=== PATIENT | female | born 1945 | race Caucasian/White ===

== ENCOUNTER → 2019-04-08 | Outpatient (CLI) | payer MEDICARE, OTHER ==
[~2019-04-08] MED LIST: CALCIUM + D3 E1 EACH PO; Omeprazole20 M1 PO; Synthroid25 MCG PO
== END | disposition home or self-care (01) ==
LOC: LAB SHORT 10:54 → LAB EV 10:54
DX: N39.0 Urinary tract infection, site not specified (principal)
CPT/HCPCS: 87077; 87086; 87186

== ENCOUNTER 2020-03-01 15:14 | Inpatient (IN) | payer MEDICARE, OTHER ==
[~2020-03-01] VITALS: Ht 165.1 cm; Wt 85.1 kg
[2020-03-01 15:56] LABS: BASOPHILS ABSOLUTE AUTO 0.03 K/mm3 (0.00-0.23); BASOPHILS PERCENT AUTO 1 % (0-2); EOSINOPHILS ABSOLUTE AUTO 0.03 K/mm3 (0.00-0.68); EOSINOPHILS PERCENT AUTO 1 % (0-6); Hematocrit 45.2 % (33.0-51.0); Hemoglobin 14.9 g/dL (11.5-16.0); IMMATURE GRAN ABSOLUTE AUTO 0.02 K/mm3 (0.00-0.10); IMMATURE GRAN PERCENT AUTO 0 % (0-1); LYMPHOCYTES ABSOLUTE AUTO 1.87 K/mm3 (0.84-5.20); LYMPHOCYTES PERCENT AUTO 29 % (21-46); MONOCYTES ABSOLUTE AUTO 0.34 K/mm3 (0.16-1.47); MONOCYTES PERCENT AUTO 5 % (4-13); Mean Corpuscular HGB 29.6 pg (26.0-34.0); Mean Corpuscular Volume 90 fL (80-100); Mean Platelet Volume 12.1 fL (9.1-12.4); NEUTROPHILS ABSOLUTE AUTO 4.22 K/mm3 (1.96-9.15); NEUTROPHILS PERCENT AUTO 65 % (41-73); Platelet Count 185 K/mm3 (150-400); RDW Coefficient Variation 12.6 % (11.7-14.2); RDW Standard Deviation 41.4 fL (35.1-46.3); Red Blood Cell Count 5.04 M/mm3 (3.80-5.20); White Blood Cell Count 6.51 K/mm3 (4.00-11.30)
[2020-03-01 16:19] LABS: Alanine Aminotransfer (ALT/SGP 21 U/L (12-78); Albumin/Globulin Ratio 1.3 (0.8-1.8); Alk Phos 54 U/L (50-136); Anion Gap 5 mmol/L (6-16); Aspartate Aminotrans (AST/SGOT 19 U/L (12-37); Bilirubin, Total 1.1 mg/dL (0.1-1.0); Blood Urea Nitrogen 15 mg/dL (8-24); Bun/Creatinine Ratio 18.6 (12.0-20.0); CO2, Blood 27 mmol/L (21-32); Chloride, Blood 103 mmol/L (98-108); Creatinine, Blood 0.81 mg/dL (0.40-1.00); Glomerular Filtration Rate >60 (60-); Glucose, Blood 95 mg/dL (70-99); Potassium, Blood 4.2 mmol/L (3.5-5.5); Sodium, Blood 135 mmol/L (136-145); Troponin I <0.015 ng/mL (0.000-0.040)
[2020-03-01 16:23] LABS: Free Thyroxine 1.22 ng/dL (0.70-1.60); Thyroid Stimulating Hormone 2.39 uIU/mL (0.360-4.800)
--- NOTE | 2020-03-01 19:40 | NUR ---
DR MCGARRY IN TO SEE PT
--- NOTE | 2020-03-01 20:00 | NUR ---
PT TO ICU 8 VIA [facility] WITH ED RN @ 191. PT ALERT AND ORIENTED x4, TALKING IN FULL SENTENCES WITH EASE, JOKING WITH STAFF. PT DENIES CP, SOB AND DIZZINESS. PT REPORTS PAIN TO HER LOW BACK AND SIGNIFICANT CRAMPING IN HER L UPPER LEG/BUTTOCK WITH MOVEMENT. O2 SATURATIONS>90% ON RA, MONITOR SHOWS 3RD DEGREE HEART BLOCK WITH HR 30'S-40'S, EXTERNAL PACER PADS IN PLACE AND CONNECTED TO ZOLL, MONITORING ONLY AT THIS TIME. PT HYPERTENSIVE WITH SBP 180'S-210, MILD LOWER EXTREMITY SWELLING, SLIGHTLY WORSE TO L LEG. PT DENIES GI/ ISSUES. NEW ORDERS FOR HYDRALAZINE, VENOUS DUPLEX US, AND ECHO. CURRENT ILLNESS PT REPORTS SHE STARTED HAVING DIZZY SPELLS WHEN GETTING UP OUT OF BED IN THE MORNING APPROX 2-3 MONTHS AGO, APPROX 2-3 WEEKS AGO SHE BEGAN FEELING SOB WITH ACTIVITY THAT TOOK ABOUT 15 MINUTES OF REST TO RECOVER. PT WENT TO URGENT CARE TODAY R/T BACK PAIN, WHERE SHE WAS FOUND TO BE BRADYCARDIC AND SENT TO THE ED. PLAN FOR PERMANENT PACER TOMORROW, DR MCGARRY DISCUSSED THIS PROCEDURE WITH PT.
[2020-03-02 04:07] LABS: BASOPHILS ABSOLUTE AUTO 0.04 K/mm3 (0.00-0.23); BASOPHILS PERCENT AUTO 1 % (0-2); EOSINOPHILS ABSOLUTE AUTO 0.06 K/mm3 (0.00-0.68); EOSINOPHILS PERCENT AUTO 1 % (0-6); Hematocrit 44.4 % (33.0-51.0); Hemoglobin 14.6 g/dL (11.5-16.0); IMMATURE GRAN ABSOLUTE AUTO 0.01 K/mm3 (0.00-0.10); IMMATURE GRAN PERCENT AUTO 0 % (0-1); LYMPHOCYTES ABSOLUTE AUTO 1.89 K/mm3 (0.84-5.20); LYMPHOCYTES PERCENT AUTO 30 % (21-46); MONOCYTES ABSOLUTE AUTO 0.45 K/mm3 (0.16-1.47); MONOCYTES PERCENT AUTO 7 % (4-13); Mean Corpuscular HGB 29.7 pg (26.0-34.0); Mean Corpuscular HGB Conc 32.9 g/dL (31.5-36.5); Mean Corpuscular Volume 90 fL (80-100); Mean Platelet Volume 12.2 fL (9.1-12.4); NEUTROPHILS ABSOLUTE AUTO 3.81 K/mm3 (1.96-9.15); NEUTROPHILS PERCENT AUTO 61 % (41-73); Platelet Count 188 K/mm3 (150-400); RDW Coefficient Variation 12.7 % (11.7-14.2); RDW Standard Deviation 41.8 fL (35.1-46.3); Red Blood Cell Count 4.92 M/mm3 (3.80-5.20); White Blood Cell Count 6.26 K/mm3 (4.00-11.30)
[2020-03-02 04:31] LABS: Anion Gap 7 mmol/L (6-16); Blood Urea Nitrogen 14 mg/dL (8-24); Bun/Creatinine Ratio 18.3 (12.0-20.0); CO2, Blood 26 mmol/L (21-32); Calcium, Blood 8.8 mg/dL (8.5-10.1); Chloride, Blood 106 mmol/L (98-108); Creatinine, Blood 0.77 mg/dL (0.40-1.00); Glomerular Filtration Rate >60 (60-); Glucose, Blood 100 mg/dL (70-99); Potassium, Blood 4.1 mmol/L (3.5-5.5); Sodium, Blood 139 mmol/L (136-145); Troponin I <0.015 ng/mL (0.000-0.040)
--- NOTE | 2020-03-02 06:22 | NUR ---
SHIFT SUMMARY PT RESTED WELL T/O NIGHT, AROUSES WITH VERBAL STIMULI, CONTINUES TO DENY CP, SOB AND DIZZINESS. HYDRALAZINE 5MG ADMINISTERED x1 THIS SHIFT. MONITOR SHOWS BRADYCARDIA, HR 30'S, SBP 120-130'S WHILE SLEEPING AND 140'S-150'S WHILE AWAKE. EXTERNAL PACER PADS REMAIN IN PLACE, ZOLL AT BEDSIDE MONITORING ONLY T/O SHIFT. PT REMAINS AFEBRILE. O2 SATURATIONS>90% ON RA. PT ANXIOUS FOR PACER PLACEMENT AND DC HOME. CALL LIGHT WITHIN REACH, USES APPROPRIATELY.
--- NOTE | 2020-03-02 08:15 | NUR ---
INITIAL ASSESSMENT PATIENT ALERT AND ORIENTED X 4, AFEBRILE. PATIENT DENIES ANY PAIN OR CHEST PRESSURE. PATIENT STATES THAT SHE DOES HAVE EXCRUCIATING AND DEBILITATING CRAMPING IN LOWER BACK AND LEFT LEG WITH MOVEMENT. PATIENT STATES SHE HAS NO PAIN IF SHE DOES NOT MOVE. PATIENT STATES THAT SHE FREQUENTLY FEELS DIZZY WHEN SHE GETS UP IN THE MORNING FROM LYING DOWN. PATIENT BEDREST AT THIS TIME. PATIENT SATTING 90% AND GREATER ON RA. PATIENT DENIES COUGH. PATIENT DOES REPORT THAT SHE HAS BEEN HAVING SOME SOB AT HOME. NO SOB NOTED AT THIS TIME. PATIENT SWITCHING BETWEEN 2ND DEGREE HB AND 3RD DEGREE HB. HR IN THE 30S. SBP 160S TO 170S. PRN HYDRALAZINE GIVEN. ZOLL ATTACHED TO PATIENT FOR MONITORING. NO NEED TO PACE AT THIS TIME. PATIENT ASYMPTOMATIC. GI WNL. PATIENT NPO FOR PACEMAKER PROCEDURE PLANNED FOR TODAY. WNL. PATIENT BEING ASSISTED WITH BED CASTAÑEDA. TRACE EDEMA NOTED TO BLES. SKIN APPEARS WNL. IVS FLUSHED AND SALINE LOCKED. BED LOW, CALL LIGHT IN REACH. WILL CONTINUE TO MONITOR PATIENT FREQUENTLY THROUGHOUT SHIFT.
--- NOTE | 2020-03-02 11:51 | NUR ---
DR. SANFORD INFORMED OF PATIENT'S SBP IN 170S AND THAT PATIENT UNABLE TO GET PRN DOSE OF 5 MG HYDRALAZINE AT THIS TIME. ORDER RECEIVED.
--- NOTE | 2020-03-02 12:05 | NUR ---
HR 30S TO 40S. SBP 190S. HYDRALAZINE GIVEN. SBP NOW 170S. NO OTHER ACUTE CHANGES TO NOTE ON AT THIS TIME. WILL CONTINUE TO MONITOR..
--- NOTE | 2020-03-02 14:40 | NUR ---
PATIENT TAKEN TO HEART CENTER FOR PACEMAKER PLACEMENT.
--- NOTE | 2020-03-02 18:48 | NUR ---
SHIFT SUMMARY PATIENT REMAINED ALERT AND ORIENTED X 4, AFEBRILE. PATIENT CONTINUED TO COMPLAIN OF DEBILITATING CRAMPING PAIN IN LOWER BACK AND LEFT LOWER LEG WITH MOVEMENT. PATIENT STATES SHE HAS NO PAIN WHEN SHE DOESN'T MOVE. PATIENT REMAINED SATTING 90% AND GREATER ON RA. NO SOB REPORTED. PATIENT IN 2ND DEGREE TO 3RD DEGREE HB MOST OF SHIFT. PATIENT WENT TO HEART CENTER TO HAVE PACEMAKER INSERTED. PATIENT JUST RETURNED FROM PROCEDURE. 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 RATE 60. PRESSURE DRESSING IN PLACE. PATIENT GIVEN PRN HYDRALAZINE 2 TIMES DURING SHIFT FOR SBP OVER 160. NO BM THIS SHIFT. WNL; PATIENT ASSISTED WITH BED CASTAÑEDA. IVS REMAIN SALINE LOCKED. PATIENT GIVEN BED BATH THIS SHIFT. PATIENT WANTING TO SPEAK WITH DOCTOR IN MORNING ABOUT CONTINUED PAIN THIS "IS THE REASON SHE WENT TO THE DOCTOR IN THE FIRST PLACE". AT BEDSIDE. BED LOW, CALL LIGHT IN REACH. REPORT WILL BE GIVEN TO ONCOMING LANG INTERPRETER NURSE SHORTLY.
--- NOTE | 2020-03-02 21:14 | NUR ---
ASSUMPTION OF CARE PT RECENTLY RETURNED FROM DIRECTOR OF NURSES REGISTRY, PERMANENT PACER IN PLACE, MONITOR SHOWS HR 80'S-90'S, 100% PACED. PT HAS 10/10 PAIN TO LOW BACK AND L LEG WITH MOVEMENT, BECOMES TEARFUL AND FRUSTRATED WITH THE LACK OF MOBILITY. K PAD APPLIED TO LOW BACK/L LEG AND CALL PLACED TO TOPHER FELIX MRI SPECIAL PROCEDURES TECHNOLOGIST, ORDER FOR FLEXERIL AND LIDOCAINE PATCH. O2 SATURATIONS> 95% ON RA. NO GI/ ISSUES AT THIS TIME. PT PLACED IN L ARMS SLING AND EDUCATED ON USE OF ARM POST PACER PLACEMENT. CALL LIGHT WITHIN REACH, PT USING APPROPRIATELY.
--- NOTE | 2020-03-03 07:32 | NUR ---
SHIFT SUMMARY PT SLEPT WELL T/O NIGHT, REMAINS ORIENTED x4, MONITOR SHOWS PACED RHYTHM, BP STABLE WITH SBP 140'S AFTER HYDRALZINE x1 AND FIRST DOSE OF AMLODIPINE. PT REMAINS AFEBRILE. SLING PLACED TO L ARM AND REMAINED IN PLACE OVERNIGHT. PAIN TO LOW BACK AND L LEG PERSISTS, PT UNABLE TO BEAR ANY WEIGHT ON L LEG, PT VERY TEARFUL AND FRUSTRATED WITH IMMOBILITY. PT REPORTS WANTING TO TRY PT. CALL FROM DR HOUGH THIS AM, PT TO BE NPO AT THIS TIME. REPORT GIVEN TO OLU GARCES.
--- NOTE | 2020-03-03 17:30 | NUR ---
SHIFT NOTE PT IS CURRENTLY IN HEART CENTER FOR PACEMAKER REVISION AT THE TIME OF THIS NOTE. PT HAS BEEN RESTING IN BED FREE OF PAIN OR DISTRESS T/O THE DAY. PT A/O X4. PT HAS BEEN WEARING SLING AND NOT USING LT ARM. VSS. PT HAS BEEN SEEN BY PHYSCIAL THERAPY FOR SCIATIC PAIN, PER PHYSCICAL THERAPY PT WILL LIKELY REQUIRE SNF AFTER D/C SCIATIC PAIN IS CAUSING HER TO HAVE INCREASED PAIN WITH AMBULATION.
--- NOTE | 2020-03-03 19:50 | NUR ---
ASSUMED CARE NOTE: ASSUMED CARE OF PT AT 1950, PT ARRIVED VIA STRECHER FROM STUDY DIRECTOR. REPORT OBTAINED BY STUDY DIRECTOR NURSE. PT IS ALERT AND ORIENTEDX4. PT ON RA WITH SPO2 AT 97%, NO RESPRIATORY DISTRESS NOTED. PT IN PACED RHYTHM , WITH HR IN THE 90'S. PACEMAKER DRESSING TO LEFT CHEST IS C/D/I. LEFT ARM IN SLING. SPOKE TO ON THE PHONE, HE WANTED US TO REMIND THE PATINET NOT TO USE LEFT ARM AND TO MAINTAIN PT ON BEDREST. PT WAS REMINDED AND EDUCATED ON POST PACEMAKER RESTRICTIONS. PT STS SHE IS HAVING 4/10 PAIN TO BACK AND LEFT HIP/LEG WITH MOVEMENT, PT REPOSITIONED FOR COMFORT. VITALS STABLE. AT BEDSIDE, WILL CONTINUE TO MONITOR PT T/O SHIFT.
--- NOTE | 2020-03-04 06:22 | NUR ---
SHIFT SUMMARY: NO SIGNIFICANT CHANGES T/O SHIFT. PT WAS ABLE TO GET GOOD AMOUNT OF SLEEP T/O THE NIGHT. PT REMAINS ON RA WITH SPO2 GREATER THAN 95% PT HAS BEEN PACED T/O SHIFT WITH HR IN THE 80'S. PACE MAKER SITE IS C/D/I. PT HAS BEEN IN SLING T/O NIGHT, ABLE TO FOLLOW RESTRICTIONS. VITALS HAVE BEEN STABLE. PT HAS BEEN ON BEDREST SINCE POST-OP AND HAS USED BEDPAN. WILL CONTINUE TO MONITOR PT UNTIL REPORT IS GIVEN TO ONCOMING SHIFT.
--- NOTE | 2020-03-04 11:30 | NUR ---
CARE ASSUMED CARE AND REPORT ASSUMED FROM WOO GARCES. PT SITTING UPRIGHT IN BED WATCHING TV. PACEMAKER INCISIONAL SITE IN L CHEST IS C/D/I. CURRENTLY PACED RHYTHM, HR 80-90S. BP WNL. AFEBRILE. TOLERATED EATING BREAKFAST. PT TAKEN DOWN TO IMAGING FOR CXR TO EVALUATE PACEMAKER AND LEADS. AT BEDSIDE. PT A/O X 3, FOLLOWING COMMANDS APPROPRIATELY. HAS NOT GOTTEN OUT OF BED YET, REQUESTING TO USE BEDPAN. AWAITING VISIT FROM CARDIOLOGY.
--- NOTE | 2020-03-04 16:19 | NUR ---
TRANSFER REPORT CALLED TO RN ON 3RD FLOOR. WILL TRANSPORT PT TO 304 BY WHEELCHAIR.
--- NOTE | 2020-03-04 16:57 | NUR ---
PT TRANSFERED TO ROOM 304 FROM ICU 8 VIA WHEEL CHAIR. PT IS CURENTLY SITTING IN CHAIR WATCHING TV. NO COMPLAINTS ON N/V/P. LUNGS SOUNDS CLEAR THROUGHOUT. PT ORIENTED TO ROOM AND CALL LIGHTS W/IN REACH.
--- NOTE | 2020-03-04 22:09 | NUR ---
1950 THIS NURSE ADJUSTED PATIENT LEFT ARM SLING TO 45 DEGREE ANGLE WHEN DEVICE WORN PATIENT HAD SLING CURLED UP BEHIND ELBOW PRIOR TO ASSESSMENT; PTS LEFT UPPER CHEST PACEMAKER INSERTION SITE DRY AND INTACT; PT TAUGHT TO NOT USE LEFT ARM AND TO LEFT EXTREMITY REST DUE TO RECENT PACEMAKER ISSUE; ALERT AND ORIENTED X 4 WHILE SITTING UP CHAIR;
--- NOTE | 2020-03-05 03:50 | NUR ---
SHIFT SUMMARY: 74 Y/O FEMALE RESTED COMFORTABLY ALL SHIFT; PTS LEFT ARM IN SLING AT 45 DEGREE ANGLE AND PT ENCOURAGED TO NOT MOVE ARM/HANDS DUE TO RECENT PACEMAKER PLACEMENT TO LEFT UPPER CHEST--DRESSING DRY AND INTACT WITH TELEMETRY REFLECTING PACED RHYTHM IN 70'S; DENIES CHEST PAIN OR NAUSEA; PT HAS CHRONIC SCIATIC NERVE LEFT HIP PAIN RATED 7/10 WITH NORCO 10/325 PO GIVEN X 1 WITH RELIEF FELT; ALERT AND ORIENTED X 4; CHEERFUL; BED LOW POSITION WITH CALL LIGHT AT SIDE.
--- NOTE | 2020-03-05 16:51 | NUR ---
SHIFT SUMMARY PT IS A&OX4. PT IS A 1 PERSON ASSIT TO BEDSIDE COMODE OR CHAIR. PHYSICAL THERAPY WORKED WITH THE PT TODAY AND RECOMENDED DC TO REHABILITATION FACILITY TO HELP IMPROVE STRENGHT. AFTER TALKING WITH PT SHE IS CONSIDERING REHAB OVER GOING HOME IN [place] IT WILL KEEP HER SAFE AND RECOVERY MAY BE QUICKER. PT HAS BEEN BEEN HAVING LEFT HIP AND BACK PAIN WHILE MOVING. THAT IS MAKING IT DIFFICULT TO MOVE. WHEN SITTING OR RESTING IN BED PAIN LEVEL IS 0 WHEN MOVING PAIN CAN SHOOT UP BETWEEN 6-10. MEDICATION WAS GIVEN IN [place] TO HELP DECRECE LEVEL OF PAIN AND MOTIVATE PT TO MOVE. PT HAS NOT COMPLAINED OF N/V. PT STATED SHE HAS NOT HAD A BM [place]ILE [place] AND HER BASELINE IS TO HAVE ONE EVERY DAY OR EVERY OTHER DAY. DISCUSSED WITH AND BOWEL CARE WAS ORDERED FOR PT. PT IS CURENTLY RESTING IN BED WITH COMPRESSION DEVICE ON CALFS. CALL LIGHT IS WITH IN REACH.
--- NOTE | 2020-03-06 07:26 | NUR ---
SHIFT SUMMARY AOX4. VSS. TELE NSR @ 70'S. DENIES N/V, CP, DYSPNEA. REPORTS 04/08 BACK & L HIP PAIN c MOVEMENT OR WHILE UP, DENIES ANY PAIN WHILE @REST. REFUSED THE NEED FOR PAIN MEDICATION, DID TAKE SCHEDULED LYRICA. BANDAGE OVER LUCW PACEMAKER IS C/D/I, SLING ON L ARM IN PLACE. PT REPORTED DAUGHTER IS COMING FROM [place] ON FRIDAY TO HELP PROVIDE CARE FOR PT. CALL LIGHT IN REACH.
--- NOTE | 2020-03-06 11:13 | NUR ---
PT STATE CONTINUING SCIATIC/LLE PAIN w MOVEMENT. LIDODERM PATCH & TYLENOL PROVIDED. SHE IS UP w [facility] AMBULATING IN [place]. HERE TO VISIT STATE HOPEFUL PT WILL BE ABLE TO D/C TO HOME INSTEAD OF SNF, ATTEMPTING TO OBTAIN W/C TODAY.
[2020-03-06] MEDS ORDERED: ACET325 PO (13:22)
[2020-03-06] MEDS ORDERED: AMLO10 PO (13:22)
[2020-03-06] MEDS ORDERED: LIDOCAINE PAIN1 EACH TOP (13:23)
[2020-03-06] MEDS ORDERED: Prinivil10 MG PO (13:24)
[2020-03-06] MEDS ORDERED: MIRALAX17 GM PO (13:24)
[2020-03-06] MEDS ORDERED: PREG25 PO (13:25)
--- NOTE | 2020-03-06 15:44 | NUR ---
SUMMARY PT IS A/O X4, PLEASANT AFFECT. SHE IS UP 1 ASSIST OT BSC, STATE CONTINUING SCIATIC/LLE PAIN w MOVEMENT. LIDODERM PATCH TO L HIP & PRN TYLENOL GIVEN. SHE PARTICIPATED w PHYTHER THIS AM. DR WYNNE IN TO SEE HER, PLACE ORDERS FOR D/C HOME w HOME HEALTH. PT & INITIALLY EXCITED TO GO HOME HOWEVER THEN ASK DR WYNNE TO HOLD D/C UNTIL ABLE TO OBTAIN HEMIWALKER, OBTAIN W/C. DR WYNNE AGREEABLE. RN CAREMANAGER ARRANGING [facility]. COPS PREPARE D/C FOR AM. ALISHA TOO LCW S/P PACER SURG CDI, L ARM CONTINUES IN SLING. PT WILL NEED ASSIST @ HOME, STATE HER DAUGHTER IS COMING FROM OUT OF TOWN, WILL ARRIVE TOMORROW. VSS, NSR w BBB 70'S/TELE. SHE STATE MULT DAYS NO BM, BOWEL MEDS GIVEN THIS AM.
--- NOTE | 2020-03-07 05:42 | NUR ---
SHIFT SUMMARY NO ACUTE CHANGES THIS SHIFT. AOX4. VSS. TELE NSR c BBB &1ST DEGREE HB @73. PACEMAKER TO LUCW, BANDAGE OVER SITE IS C/D/I. L ARM REMAINS IN SLING TO PROTECT PACEMAKER LEADS. REPORTS 10/10 L HIP/SCIATIC PAIN c MOVEMENT & TRANSFERS, MEDICATED 1X c TYLENOL, STATES RELIEF & 0/10 PAIN c NO MOVEMENT. PLAN TO DC HOME c & DAUGHTER TODAY. CALL LIGHT IN REACH. WCTM.
--- NOTE | 2020-03-07 13:21 | NUR ---
DISCHARGE [facility] BIZTALK ARCHITECT/DC BOX BRANDER MICHELLE MOTLEY PT HAS NECESSARY HEMIWALKER, W/C, BSC FOR HOME CARE. APPTS W [facility] FOR PACER SURG SITE CARE CLARIFIED. PT & STATE SATISFACTION, READY FOR D/C HOME. HH ARRANGED. IV SITE D/C INTACT. D/C INSTRUCT REVIEWED. SCRIPTS FAXED TO [facility]. PT PROVIDED W/C ESCORT FROM HOSP. THEY PLEASANT, APPRECIATIVE.
== END 2020-03-07 12:00 | disposition home or self-care (01) | DRG 243 ==
LOC: ER 15:14 → ICUW 15:15 → ICUE 15:15 → MEDS 03-04 16:37 → ENPENDDIS 03-06 12:29 → MEDS 03-07 12:00
PROVIDERS: Family Medicine; Physician Assistant; ADMIT Hospitalist
PROC: 0JH606Z Insertion of Pacemaker, Dual Chamber into Chest Subcutaneous Tissue and Fascia, Open Approach (ICD-10-PCS; principal; 2020-03-02)
PROC: 02HK3JZ Insertion of Pacemaker Lead into Right Ventricle, Percutaneous Approach (ICD-10-PCS; 2020-03-02)
PROC: 02H63JZ Insertion of Pacemaker Lead into Right Atrium, Percutaneous Approach (ICD-10-PCS; 2020-03-02)
PROC: 02WA3MZ Revision of Cardiac Lead in Heart, Percutaneous Approach (ICD-10-PCS; 2020-03-03)
DX: I44.2 Atrioventricular block, complete (principal); T82.120A Displacement of cardiac electrode, initial encounter; E03.9 Hypothyroidism, unspecified; Z20.828 Contact with and (suspected) exposure to other viral communicable diseases; E66.9 Obesity, unspecified; I10 Essential (primary) hypertension; K21.9 Gastro-esophageal reflux disease without esophagitis; M54.5 Low back pain; M54.32 Sciatica, left side; G89.29 Other chronic pain; Z68.32 Body mass index [BMI] 32.0-32.9, adult
CPT/HCPCS: 33208; 33210; 33215; 33234; 36415; 71045; 71046; 76775; 76937; 80048; 80053; 84439; 84443; 84484; 85025; 93005; 93010; 93306; 93971; 97110; 97112; 97116; 97163; 97530; 99152; 99153; 99285-25; A9270; A9270-GY; C1781; C1785; C1894; C1898; G0378; J0360; J0690; J1644; J2250; J3010; J7030; J7040; J7050; U0002

== ENCOUNTER → 2021-05-11 | Outpatient (CLI) | payer MEDICARE, OTHER ==
[~2021-05-11] MED LIST changes: +ACET325 PO; +AMLO10 PO; +LIDOCAINE PAIN1 EACH TOP; +MIRALAX17 GM PO; +PREG25 PO; +Prinivil10 MG PO
[2021-05-11 16:48] LABS: Anion Gap 7 mmol/L (6-16); Blood Urea Nitrogen 9 mg/dL (8-24); Bun/Creatinine Ratio 13.2 (12.0-20.0); CO2, Blood 28 mmol/L (21-32); Calcium, Blood 9.2 mg/dL (8.5-10.1); Chloride, Blood 106 mmol/L (98-108); Creatinine, Blood 0.68 mg/dL (0.40-1.00); Glomerular Filtration Rate >60 (60-); Glucose, Blood 124 mg/dL (70-99); Potassium, Blood 4.4 mmol/L (3.5-5.5); Sodium, Blood 141 mmol/L (136-145)
== END ==
LOC: LAB 13:12 → LAB SHORT 13:12
PROVIDERS: Physician Assistant
DX: I10 Essential (primary) hypertension (principal); E03.9 Hypothyroidism, unspecified
CPT/HCPCS: 36415; 80048; 84443

== ENCOUNTER 2025-01-18 09:01 | Day surgery (SDC) | payer MEDICARE, OTHER ==
[~2025-01-18] VITALS: Ht 165.1 cm; Wt 83.7 kg
[2025-01-18] MEDS ORDERED: LOSA25 (10:06)
[2025-01-18] MEDS ORDERED: CALPHRON (10:07)
[2025-01-18 11:51] VITALS: BP 138/74
== END 2025-01-18 12:03 | disposition home or self-care (01) ==
LOC: ORSCSDS 09:01
PROVIDERS: Surgery
PROC: 0DBK8ZX Excision of Ascending Colon, Via Natural or Artificial Opening Endoscopic, Diagnostic (ICD-10-PCS; principal; 2025-01-18 10:30)
DX: Z12.11 Encounter for screening for malignant neoplasm of colon (principal); Z86.0101 Personal history of adenomatous and serrated colon polyps; D12.2 Benign neoplasm of ascending colon; K57.30 Diverticulosis of large intestine without perforation or abscess without bleeding; K64.8 Other hemorrhoids; Z95.0 Presence of cardiac pacemaker; E03.9 Hypothyroidism, unspecified; E78.5 Hyperlipidemia, unspecified; Z79.899 Other long term (current) drug therapy
CPT/HCPCS: 88305; J2704; J7120